=== PATIENT | female | born 1975 | race Hispanic/Latino ===

== ENCOUNTER 2023-09-21 20:05 | Emergency (ER) | payer OTHER ==
[~2023-09-21] VITALS: Ht 165.1 cm; Wt 112.5 kg
[2023-09-21 20:52] LABS: APPEARANCE,URINE TURBID (CLEAR); BILIRUBIN,URINE NEGATIVE (NEGATIVE); COLOR,URINE LIGHT-ORANGE (YELLOW); GLUCOSE, URINE (UA) NEGATIVE (NEGATIVE); KETONES,URINE NEGATIVE (NEGATIVE); LEUKOCYTE ESTERASE ,URINE 25 Leu/uL (NEGATIVE); NITRATE,URINE NEGATIVE (NEGATIVE); OCCULT BLOOD,URINE MODERATE (NEGATIVE); PH,URINE 6.5 (5.0-8.0); PROTEIN,URINE 10 mg/dL (NEGATIVE); UROBILINOGEN,URINE 0.2 mg/dL (0.2-1.0)
[2023-09-21 21:03] LABS: ADD UA MICROSCOPIC YES
[2023-09-21 21:09] LABS: MUCUS,URINE RARE LPF (None Seen); SQUAMOUS EPITHELIAL CELL,UR MANY /HPF (0-2); TRANSITIONAL EPI CELLS,URINE FEW /HPF (None Seen); WBC,URINE 26-50 /HPF (0-1)
[2023-09-21 21:13] LABS: CREATINE KINASE, TOTAL 50 U/L (21-232)
[2023-09-21] MEDS ORDERED: AMOX1TAB16 PO (22:56)
[2023-09-21] MEDS ORDERED: BENZ-39 PO (22:57)
[2023-09-21] MEDS: AMOX/CLAV 875/125MG TAB PO ONE (23:09)
[2023-09-21 23:15] VITALS: BP 125/74; PULSE 89; RESP 20; O2SAT 99
[2023-09-21] MEDS: BENZONATATE 100 MG CAPSULE PO ONE (23:17)
== END 2023-09-21 23:18 | disposition home or self-care (01) ==
LOC: EDH 20:05
DX: J06.9 Acute upper respiratory infection, unspecified (principal); R09.82 Postnasal drip; I10 Essential (primary) hypertension; E11.9 Type 2 diabetes mellitus without complications; Z79.899 Other long term (current) drug therapy; Z90.49 Acquired absence of other specified parts of digestive tract; Z90.710 Acquired absence of both cervix and uterus; Z98.890 Other specified postprocedural states
CPT/HCPCS: 36415; 71045; 81001; 82550; 83880; 84484; 87088; 93005